=== PATIENT | male | born 1995 | race African-American/Black ===

== ENCOUNTER 2021-11-05 11:17 | Emergency (ER) | payer MEDICAID ==
[~2021-11-05] VITALS: Ht 167.6 cm; Wt 78.0 kg
[2021-11-05 11:45] VITALS: BP 107/53
[2021-11-05] MEDS ORDERED: LIDOCAINE HCL/PF 1% 10 MG/ML 5ML VIAL INFIL NR (13:30)
[2021-11-05] MEDS ORDERED: IBUPROFEN 600MG TABLET PO NR (13:30)
[2021-11-05] MEDS ORDERED: IBUP-2029 PO (14:05)
[2021-11-05] MEDS ORDERED: CEPH500C2 PO (14:05)
[2021-11-05] MEDS ORDERED: BACITRACIN ZINC OINT UDPKT TOP ONE (14:15)
== END 2021-11-05 14:23 | disposition home or self-care (01) ==
LOC: ER 11:17
DX: T16.1XXA Foreign body in right ear, initial encounter (principal); X58.XXXA Exposure to other specified factors, initial encounter; Y93.89 Activity, other specified; Y92.89 Other specified places as the place of occurrence of the external cause; Y99.8 Other external cause status
CPT/HCPCS: 69200; 99284; J3490; 99283

== ENCOUNTER 2022-07-06 08:18 | Emergency (ER) | payer MEDICAID, OTHER ==
[~2022-07-06] VITALS: Ht 170.2 cm; Wt 69.0 kg
[~2022-07-06 08:18] MED LIST: CEPH500C2 PO; IBUP-2029 PO
[2022-07-06] MEDS ORDERED: T3 PO (10:02)
[2022-07-06] MEDS ORDERED: IBUP-2029 PO (10:02)
[2022-07-06] MEDS ORDERED: KETOROLAC 60MG/2ML VIAL IM ONE (10:15)
[2022-07-06 10:42] VITALS: BP 117/77
== END 2022-07-06 11:07 | disposition home or self-care (01) ==
LOC: ER 08:18
DX: S02.609A Fracture of mandible, unspecified, initial encounter for closed fracture (principal); S06.9XAA Unspecified intracranial injury with loss of consciousness status unknown, initial encounter; Y04.0XXA Assault by unarmed brawl or fight, initial encounter; Y93.89 Activity, other specified; Y92.89 Other specified places as the place of occurrence of the external cause; Y99.8 Other external cause status
CPT/HCPCS: 70486; 96372; 99284; J1885; Z7610